=== PATIENT | male | born 1945 | race Caucasian/White ===

== ENCOUNTER → 2017-03-03 | Day surgery (SDC) | payer OTHER ==
[~2017-03-03] VITALS: Ht 161.3 cm; Wt 93.2 kg
[~2017-03-03] MED LIST: *morphine SULFATE 8 MG/ML PERIprocedure ONLY ONE; ACETAMINOPHEN 1000 MG/100 ML VIAL IV ONE; ACETAMINOPHEN/HYDROcodone 325 MG/5 MG TAB PO PRN; ALBU8I; AMLO10 PO; AMLO5TAB96 PO; ASPI1TAB69 PO; BACT800T5 PO; CHLORHEXIDINE GLUCONATE 2 % 1 PACK (2 CLOTHS) TOPICAL PRN; CHLORHEXIDINE GLUCONATE 4% SOLN 120 ML BTL TOPICAL SCH; DEXAMETHASONE SOD PHOS 4 MG/ML VIAL ONE; DO NOT ADM ANY ANTICOAGULANT DRUGS PRN; FAMOTIDINE 20 MG/2 ML VIAL ONE; GEMF600T PO; GLIP10TA6 PO; GLUC10TA3 PO; HYDR25TA35 PO; INSULIN HUMAN REGULAR 1,000 UNITS/10 ML VIAL SQ PRN; LACTATED RINGER'S 1000 ML IV PRN; LANTUS2P SQ; LANTUSP SQ; LISI-366 PO; LISI40TA PO; MELO7.5T PO; METOPROLOL TARTRATE 25 MG TAB PO PRN; MIDAZOLAM HCL 2 MG/2 ML VIAL ONE; MOBI7.5T PO; MORPHINE SULFATE 4 MG/ML INJ IV PUSH PRN; NORC5TAB PO; NOVOINJ6 SQ; NOVONP2 SQ; NOVORP2 SQ; ONDANSETRON HCL 4 MG/2 ML VIAL IV PUSH ONE; POVIDONE IODINE 5% (ANTISEPSIS KIT) 4 APPLICATIONS EACH NARE PRN; PROPOFOL 200 MG/20 ML AMP IV ONE; SODIUM CHLORID 0.9% 500 ML IV PRN; SODIUM CHLORIDE 0.9% FLUSH 10 ML FLUSH IV FLUSH PRN; SODIUM CHLORIDE 0.9% FLUSH 10 ML FLUSH IV FLUSH SCH; TRAZ50TA12 PO; TRAZ50TA4 PO; VANCOMYCIN 1000 MG/NS 250 ML (for <70 kg) IV SCH; VENTAER INH; WALKER STANDARD; [UNRECOGNIZED DRUG - REMARK] PO; ceFAZolin 2 GM PREMIX 50 ML IV SCH; ePHEDrine/NS 25 MG/5 ML SYR IV ONE; fentaNYL CITRATE 250 MCG/5 ML AMP ONE
[2017-03-03 06:33] VITALS: BP 173/89; PULSE 82; RESP 20; TEMP 97.7; O2SAT 99
--- NOTE | 2017-03-03 08:02 | PD.OP ---
cc: Samson Polanco MD Operative Report Date of Surgery: Mar 03, 2017 Preoperative Diagnosis: painful hardware right ankle Postoperative Diagnosis: Procedure: removal of hardware Anesthesia: gen Surgeon: Samson Polanco Tele Marketing Executive(s): CHERRY Spain PA-C Operation and Findings: Luis is well-known to me from previous right ankle fracture treated with open reduction internal fixation. He has developed continued pain around the lateral fibular plate. Patient wished to have this removed. I had a lengthy discussion with the patient regarding the risk and benefits of surgery. All questions were answered. He was brought to operating room. He was given IV sedation and general anesthesia. IV antibiotics were administered. Right leg was prepped with alcohol followed by Hibiclens and draped in usual sterile fashion. Timeout procedure was performed. Procedure began with a 4 inch incision over the distal fibula. Subcutaneous tissue dissected with Bovie. Scar tissue was incised around the plate. All the screws were identified. A screwdriver was used to loosen and remove each of the screws. The plate was now elevated. An additional lag screw was also removed from the fibula. Curettes were used to debride around the edges of the bone. Wound was thoroughly irrigated. Fluoroscopy confirmed fracture was completely healed and appropriate hardware was removed. Subcutaneous tissues closed with 3-0 Vicryl and skin was closed with 3-0 nylon. Sterile dressings were applied. Patient was awakened and transferred to recovery in stable condition. Samson Polanco MD Mar 03, 2017 08:02
--- NOTE | 2017-03-03 08:32 | EKG ---
Date Performed: 03/03/2017 Time Performed: 06:13:46 PTAGE: 72 years EKG: Sinus rhythm Possible left anterior fascicular block Borderline ECG PREVIOUS TRACING : 08/06/2014 14.27 Compared to previous tracing, T wave inversion in lead III has improved. DOCTOR: Inder Pedersen Interpretating Date/Time 03/03/2017 08:31:07
[2017-03-03 10:30] VITALS: BP 148/83; PULSE 74; RESP 18; TEMP 97.7; O2SAT 93
--- NOTE | 2017-03-03 15:30 | RADRPT ---
EXAM DATE/TIME: 03/03/2017 07:48 [facility] COMPARISON: ANKLE RIGHT LIMITED (AP&LAT), August 07, 2014, 10:48. INDICATIONS : Hardware removal right ankle. MEDICAL HISTORY : None. SURGICAL HISTORY : ORIF right ankle. ENCOUNTER: Subsequent ACUITY: >1 year PAIN SCORE: Non-responsive. LOCATION: Right ankle. FINDINGS: A single view of the right ankle was performed. The 2 left-sided screws in the medial malleolus as we ll as postsurgical changes involving the distal fibula from prior screw-plate fixation device which h as been removed. The ankle mortise is intact. The soft tissues appear unremarkable. CONCLUSION: 1. Interval removal of screw plate fixation device along the distal fibula. 2. Lactate screws remain in the medial malleolus. Zhao Knapp MD on March 03, 2017 at 15:20 Board Certified Radiologist. This report was verified electronically.
== END | disposition home or self-care (01) ==
LOC: HSDC 05:10
PROVIDERS: ATTEND Orthopaedic Surgery Orthopaedic Trauma
DX: T84.84XA Pain due to internal orthopedic prosthetic devices, implants and grafts, initial encounter (principal); R94.31 Abnormal electrocardiogram [ECG] [EKG]; Z79.4 Long term (current) use of insulin; E11.9 Type 2 diabetes mellitus without complications
CPT/HCPCS: 01480; 20680; 73600; 76000; 82948; 93005; J0131; J1100; J2250; J2270; J2405; J3010; J3370; J7050; J7120

== ENCOUNTER 2018-03-13 13:41 | Emergency (ER) | payer OTHER ==
[~2018-03-13] VITALS: Ht 165.1 cm; Wt 85.0 kg
[~2018-03-13 13:41] MED LIST changes: -*morphine SULFATE 8 MG/ML PERIprocedure ONLY ONE; -ACETAMINOPHEN 1000 MG/100 ML VIAL IV ONE; -ACETAMINOPHEN/HYDROcodone 325 MG/5 MG TAB PO PRN; -ALBU8I; -AMLO10 PO; -AMLO5TAB96 PO; -BACT800T5 PO; -CHLORHEXIDINE GLUCONATE 2 % 1 PACK (2 CLOTHS) TOPICAL PRN; -CHLORHEXIDINE GLUCONATE 4% SOLN 120 ML BTL TOPICAL SCH; -DEXAMETHASONE SOD PHOS 4 MG/ML VIAL ONE; -DO NOT ADM ANY ANTICOAGULANT DRUGS PRN; -FAMOTIDINE 20 MG/2 ML VIAL ONE; -GEMF600T PO; -GLIP10TA6 PO; -GLUC10TA3 PO; -HYDR25TA35 PO; -INSULIN HUMAN REGULAR 1,000 UNITS/10 ML VIAL SQ PRN; -LACTATED RINGER'S 1000 ML IV PRN; -LANTUSP SQ; -LISI-366 PO; -LISI40TA PO; -MELO7.5T PO; -METOPROLOL TARTRATE 25 MG TAB PO PRN; -MIDAZOLAM HCL 2 MG/2 ML VIAL ONE; -MOBI7.5T PO; -MORPHINE SULFATE 4 MG/ML INJ IV PUSH PRN; -NOVOINJ6 SQ; -NOVONP2 SQ; -ONDANSETRON HCL 4 MG/2 ML VIAL IV PUSH ONE; -POVIDONE IODINE 5% (ANTISEPSIS KIT) 4 APPLICATIONS EACH NARE PRN; -PROPOFOL 200 MG/20 ML AMP IV ONE; -SODIUM CHLORID 0.9% 500 ML IV PRN; -SODIUM CHLORIDE 0.9% FLUSH 10 ML FLUSH IV FLUSH PRN; -SODIUM CHLORIDE 0.9% FLUSH 10 ML FLUSH IV FLUSH SCH; -TRAZ50TA12 PO; -TRAZ50TA4 PO; -VANCOMYCIN 1000 MG/NS 250 ML (for <70 kg) IV SCH; -VENTAER INH; -WALKER STANDARD; -ceFAZolin 2 GM PREMIX 50 ML IV SCH; -ePHEDrine/NS 25 MG/5 ML SYR IV ONE; -fentaNYL CITRATE 250 MCG/5 ML AMP ONE
[2018-03-13 13:59] VITALS: BP 168/84; PULSE 81; RESP 18; TEMP 97.9; O2SAT 98
--- NOTE | 2018-03-13 14:08 | PD ---
HPI Chief Complaint: Fall Time Seen by Provider: 14:04 Travel History International Travel<30 days: No Contact w/Intl Traveler<30days: No Traveled to known affect area: No History of Present Illness HPI 73-year-old male presents for evaluation after mechanical fall. Today the patient reports that he tripped and fell backwards, hitting his head and buttocks on concrete. No loss of conscious. He is complaining of buttocks pain as well as upper neck and occipital pain. Pain is aching and worse with movement, walking. Denies loss of consciousness, confusion, amnesia, nausea, vomiting, blurred vision. He takes a full dose aspirin on a daily basis. No other complaints. PFSH Past Medical History Arthritis: No Asthma: No Heart Rhythm Problems: No Cancer: No Cardiovascular Problems: No High Cholesterol: No Chest Pain: No Congestive Heart Failure: No COPD: Yes Diabetes: Yes Diminished Hearing: No Endocrine: Yes GERD: No Genitourinary: No Hepatitis: No Hiatal Hernia: No Hypertension: Yes Immune Disorder: No Kidney Stones: No Musculoskeletal: Yes (RIGHT ANKLE PAIN) Neurologic: No Psychiatric: No Reproductive: No Respiratory: No Renal Failure: Yes (CHRONIC RENAL INSUFFICIENCY) Sleep Apnea: No Thyroid Disease: No Ulcer: No Past Surgical History Abdominal Surgery: Yes (APPENDECTOMY) AICD: No Appendectomy: Yes Cardiac Surgery: No Ear Surgery: No Endocrine Surgery: No Eye Surgery: No Genitourinary Surgery: Yes (hydroceole repair) Gynecologic Surgery: No Joint Replacement: No Oral Surgery: No Pacemaker: No Thoracic Surgery: No Tonsillectomy: Yes Social History Alcohol Use: No Tobacco Use: No Substance Use: No Allergies-Medications (Allergen,Severity, Reaction): Coded Allergies: No Known Allergies (Verified Adverse Reaction, Unknown, 03/13/18) Reported Meds & Prescriptions Reported Meds & Active Scripts Active Baclofen 10 Mg Tab 10 Mg PO Q8HR 7 Days Slovan (Hydrocodone-Acetaminophen) 5-325 mg Tab 1 Tab PO Q4H PRN Reported Aspirin 81 Mg Tabdr 81 Mg PO DAILY [blue bp pill] 25 Mg PO DAILY Novolin R Inj (Insulin Human Regular) 1,000 Unit/10 Ml Vial 0 SQ DIRECTED Sliding Scale As Directed. Lantus Inj (Insulin Glargine) 100 Unit/Ml Inj 25 Unit SQ BIDAC Review of Systems Except as stated in HPI: all other systems reviewed are Neg Physical Exam Narrative GENERAL: Well-developed well-nourished male in no acute distress sitting upright in hospital bed SKIN: Warm and dry. No bruising or soft tissue swelling HEAD: Atraumatic. Normocephalic. EYES: Pupils equal and round. No scleral icterus. No injection or drainage. ENT: No nasal bleeding or discharge. Mucous membranes pink and moist. NECK: Trachea midline. No JVD. CARDIOVASCULAR: Regular rate and rhythm. No murmur appreciated. RESPIRATORY: No accessory muscle use. Clear to auscultation. Breath sounds equal bilaterally. GASTROINTESTINAL: Abdomen soft, non-tender, nondistended. Hepatic and splenic margins not palpable. MUSCULOSKELETAL: No obvious deformities. Some tenderness to palpation of the cervical spine and sacrum. The patient was able to ambulate from the wheelchair to the bed. NEUROLOGICAL: Awake and alert. No obvious cranial nerve deficits. Motor grossly within normal limits. Normal speech. Data Data Last Documented VS Vital Signs Date Time Temp Pulse Resp B/P (MAP) Pulse Ox O2 Delivery O2 Flow Rate FiO2 03/13/18 13:59 97.9 81 18 168/84 (112) [address] Cerv Spine W/O Contrast (03/13/18 ) Sacrum And Coccyx (03/13/18 ) Pelvis, Ap Only (Routine) (03/13/18 ) Ct Brain W/O Iv Contrast(Rout) (03/13/18 ) Apply Cervical Collar (03/13/18 14:14) Ed Discharge Order (03/13/18 16:38) [facility] Medical Decision Making Medical Screen Exam Complete: Yes Emergency Medical Condition: Yes Medical Record Reviewed: Yes Differential Diagnosis Sacral contusion, fracture, closed head injury, intracranial hemorrhage Narrative Course Cervical collar will be applied. CT imaging the brain, cervical spine, x-ray imaging of the pelvis and sacrum have been ordered. Imaging studies are negative. Stable for discharge. Diagnosis Primary Impression: Cervical strain Additional Impression: Sacral contusion Additional Instructions: Medication as needed, do not drive or drink alcohol and taking this medication. Follow-up with primary care physician in 1-2 weeks. Return for any emergent medical conditions. Med/Other Pt SpecificInfo: Prescription(s) given Scripts Baclofen (Baclofen) 10 Mg Tab 10 MG PO Q8HR for 7 Days, TAB 0 Refills Prov: Flavio Kauffman MD 03/13/18 Disposition: 01 DISCHARGE HOME Condition: Stable Derrell Robins March 13, 2018 14:08
--- NOTE | 2018-03-13 15:08 | RADRPT ---
EXAM DATE/TIME: 03/13/2018 14:41 [facility] COMPARISON: No previous studies available for comparison. INDICATIONS : Patient complains of pelvic pain status post fall. MEDICAL HISTORY : None. SURGICAL HISTORY : None. ENCOUNTER: Initial ACUITY: 1 day PAIN SCORE: 6/10 LOCATION: Pelvis FINDINGS: Single AP view of the pelvis. Bone alignment within normal limits. No evidence of fracture. Small os teophytes of the hips. No evidence of joint narrowing. Degenerative findings of the lower lumbar spin e. CONCLUSION: No evidence of fracture. Guero Rosenthal MD on March 13, 2018 at 15:05 Board Certified Radiologist. This report was verified electronically.
--- NOTE | 2018-03-13 15:11 | RADRPT ---
EXAM DATE/TIME: 03/13/2018 14:43 [facility] COMPARISON: No previous studies available for comparison. INDICATIONS : Patient complains of tail bone pain status post fall. MEDICAL HISTORY : None. SURGICAL HISTORY : None. ENCOUNTER: Initial ACUITY: 1 day PAIN SCORE: 5/10 LOCATION: Sacrum/Coccyx FINDINGS: 3 views of the sacrum and coccyx. Bone alignment within normal limits. No evidence of fracture. CONCLUSION: No evidence of fracture. Facet arthrosis of the lower lumbar spine noted. Guero Rosenthal MD on March 13, 2018 at 15:09 Board Certified Radiologist. This report was verified electronically.
--- NOTE | 2018-03-13 16:12 | RADRPT ---
EXAM DATE/TIME: 03/13/2018 14:53 [facility] COMPARISON: No previous studies available for comparison. INDICATIONS : Fell backwards, hit head. RADIATION DOSE: 38.90 CTDIvol (mGy) MEDICAL HISTORY : Hypertension. renal failure, diabetes SURGICAL HISTORY : Appendectomy. ENCOUNTER: Initial ACUITY: 1 day PAIN SCALE: 5/10 LOCATION: cranial TECHNIQUE: Multiple contiguous axial images were obtained of the head. Using automated exposure control and adj ustment of the mA and/or kV according to patient size, radiation dose was kept as low as reasonably a chievable to obtain optimal diagnostic quality images. DICOM format image data is available electro nically for review and comparison. FINDINGS: CEREBRUM: The ventricles are normal for age. No evidence of midline shift, mass lesion, hemorrhage or acute in farction. No extra-axial fluid collections are seen. POSTERIOR FOSSA: The cerebellum and brainstem are intact. The 4th ventricle is midline. The cerebellopontine angle i s unremarkable. EXTRACRANIAL: The visualized portion of the orbits is intact. SKULL: The calvaria is intact. No evidence of skull fracture. CONCLUSION: No acute intracranial findings. Guero Rosenthal MD on March 13, 2018 at 16:07 Board Certified Radiologist. This report was verified electronically.
--- NOTE | 2018-03-13 16:29 | RADRPT ---
EXAM DATE/TIME: 03/13/2018 14:53 [facility] COMPARISON: No previous studies available for comparison. INDICATIONS : Fell backwards hit head. RADIATION DOSE: 24.42 CTDIvol (mGy) MEDICAL HISTORY : Hypertension. renal failure, diabetes SURGICAL HISTORY : Appendectomy. ENCOUNTER: Initial ACUITY: 1 day PAIN SCALE: 4/10 LOCATION: neck TECHNIQUE: Volumetric scanning of the cervical spine was performed. Multiplanar reconstructions in the sagittal, coronal and oblique axial planes were performed. Using automated exposure control and adjustment o f the mA and/or kV according to patient size, radiation dose was kept as low as reasonably achievable to obtain optimal diagnostic quality images. DICOM format image data is available electronically f or review and comparison. FINDINGS: VERTEBRAE: Normal vertebral body height. ALIGNMENT: No evidence of subluxation. Enlarged heterogeneous thyroid. C2-C3: Bilateral facet arthrosis. Moderate right neuroforaminal narrowing. Mild left neuroforaminal narrowin g. Central canal diameter within normal limits. C3-C4: Left greater than right facet arthrosis and broad-based disc osteophyte complex. Mild central canal n arrowing. Moderate bilateral neural foraminal narrowing. C4-C5: Broad-based disc osteophyte complex and bilateral facet arthrosis. Moderate bilateral neural foramina l narrowing. [id number]-fxetllii central canal narrowing. C5-C6: Broad-based disc osteophyte complex and bilateral facet arthrosis. Moderate bilateral neural foramina l narrowing. Moderate central canal narrowing. C6-C7: Broad-based disc osteophyte complex and bilateral facet arthrosis. Central canal diameter within norm al limits. Moderate bilateral neural foraminal narrowing. C7-T1: The bony spinal canal is normal in size. No evidence of disc bulge or herniation. The neural forami na are bilaterally patent. CONCLUSION: No evidence of fracture. Multilevel degenerative findings. Guero Rosenthal MD on March 13, 2018 at 16:25 Board Certified Radiologist. This report was verified electronically.
[2018-03-13] MEDS ORDERED: BACL10TA PO (16:39)
[2018-03-13 16:46] VITALS: BP 142/87
== END 2018-03-13 16:56 | disposition home or self-care (01) ==
LOC: NEPD 13:41
DX: S16.1XXA Strain of muscle, fascia and tendon at neck level, initial encounter (principal); S30.0XXA Contusion of lower back and pelvis, initial encounter; W01.0XXA Fall on same level from slipping, tripping and stumbling without subsequent striking against object, initial encounter; I12.9 Hypertensive chronic kidney disease with stage 1 through stage 4 chronic kidney disease, or unspecified chronic kidney disease; E11.22 Type 2 diabetes mellitus with diabetic chronic kidney disease; N18.9 Chronic kidney disease, unspecified; J44.9 Chronic obstructive pulmonary disease, unspecified
CPT/HCPCS: 70450; 72125; 72170; 72220; L0150